=== PATIENT | male | born 1980 | race Two or more races ===

== ENCOUNTER 2018-05-07 21:48 | Emergency (ER) | payer MEDICAID ==
[~2018-05-07] VITALS: Ht 172.7 cm; Wt 109.1 kg
[2018-05-08 00:39] VITALS: BP 161/94
== END 2018-05-08 00:45 | disposition home or self-care (01) ==
LOC: ER 21:48
DX: K21.0 Gastro-esophageal reflux disease with esophagitis (principal); K22.2 Esophageal obstruction; F31.9 Bipolar disorder, unspecified
CPT/HCPCS: 99283